=== PATIENT | male | born 1945 | race Caucasian/White ===

== ENCOUNTER 2017-04-21 20:39 | Emergency (ER) | payer MEDICARE, BC ==
--- NOTE | 2017-04-21 20:58 | UC ---
Dizzy HPI HPI Summary: 71 yo male present here about 45 minutes after a brief bout of vertigo (about 5 seconds) states he had had multiple episodes of vertigo in the past this one is different because immediately after it he experience moderate dyspnea this persists here but is currently very mild also has a mild headache no n/v denies CP hx of HTN, DM, dyslipidemia, and hx of smoking - History Of Current Complaint Chief Complaint: UCDizziness Stated Complaint: VERTIGO,SOB Time Seen by Provider: 04/21/17 20:42 Hx Obtained From: Patient Onset/Duration: Sudden Onset, Resolved Timing: Constant Severity Initially: Severe Severity Currently: None Character: Room Spinning Aggravating Factor(s): Nothing Associated Signs And Symptoms: Positive: SOB - since episode - Risk Factors Cardiac Risk Factors: Hypertension, Smoking - ex smoker, Diabetes, Elevated Lipids, Family History CVA Risk Factor: Hypertension, Diabetes, Smoking - ex - Allergies/Home Medications Allergies/Adverse Reactions: Allergies Allergy/AdvReac Type Severity Reaction Status Date / Time Wheat Bran Allergy Rash Verified 04/21/17 20:50 CRAB Allergy Severe Anaphylatic Uncoded 04/21/17 20:50 Shock COLD AIR Allergy Rash Uncoded 04/21/17 20:50 Home Medications: Home Medications Meclizine HCl [Meclizine 25] 25 mg PO DAILY PRN 04/21/17 [History Confirmed 11/29] PMH/Surg Hx/FS Hx/Imm Hx Previously Healthy: Yes Endocrine History: Diabetes, Dyslipidemia Cardiovascular History: Hypertension Other History Of: Negative For: HIV, Hepatitis B, Hepatitis C - Surgical History Surgical History: Yes Surgery Procedure, Year, and Place: PROSTATE SURGERY 2015 - Family History Known Family History: Positive: Cardiac Disease, Hypertension, Diabetes, Other - CVA Negative: Renal Disease - Social History Alcohol Use: Occasionally Alcohol Amount: 1 PER DAY Substance Use Type: None Smoking Status (MU): Former Smoker Amount Used/How Often: 1/2 PACK A DAY Have You Smoked in the Last Year: No When Did the Patient Quit Smoking/Using Tobacco: 1965 Review of Systems Constitutional: Negative Skin: Negative Eyes: Negative ENT: Negative Respiratory: Shortness Of Breath Cardiovascular: Negative Gastrointestinal: Negative Genitourinary: Negative Motor: Negative Neurovascular: Negative Musculoskeletal: Negative Neurological: Negative Psychological: Negative Is Patient Immunocompromised?: No All Other Systems Reviewed And Are Negative: Yes Physical Exam Triage Information Reviewed: Yes Appearance: Well-Appearing, No Pain Distress, Well-Nourished Vital Signs: Initial Vital Signs Temp 97.7 F 04/21/17 20:40 Pulse 79 04/21/17 20:40 Resp 18 04/21/17 20:40 BP 182/83 04/21/17 20:40 Pulse Ox 100 04/21/17 20:40 Vital Signs Reviewed: Yes Eyes: Positive: Conjunctiva Clear, Other: - eomi/perrl ENT: Positive: Hearing grossly normal. Negative: Nasal drainage, Trismus, Muffled voice, Hoarse voice Dental Exam: Normal Neck: Positive: Supple, Nontender, No Lymphadenopathy, Other: - no bruits Respiratory: Positive: Lungs clear, Normal breath sounds, No respiratory distress, No accessory muscle use Cardiovascular: Positive: RRR, No Murmur Abdomen Description: Positive: Nontender Bowel Sounds: Positive: Present Musculoskeletal: Positive: ROM Intact, No Edema Neurological Exam: Normal Neurological: Positive: Alert, Muscle Tone Normal, Other: - CGS 15/15, (-) pronator drift, no facial droop, non focal exam Psychological Exam: Normal Skin Exam: Normal Diagnostics - EKG Cardiac Rate: NL Cardiac Rhythm: Sinus: Normal Ectopy: None ST Segment: Normal Dizzy Course/Dx - Course Course Of Treatment: EKG with q's in II,III,avF. d/w Dr Canseco. to [facility] via EMS - Differential Dx/Diagnosis Provider Diagnoses: dyspnea. vertigo-resolved Discharge - Discharge Plan Condition: Stable Disposition: [facility] Referrals: Han Denson MD [Primary Care Provider] -
[2017-04-21] MEDS ORDERED: Aspirin Low Dose CHEW TAB* 81 MG PO ONE (21:08)
[2017-04-21] MEDS ORDERED: Aspirin Low Dose CHEW TAB* 81 MG ONE (21:23)
[2017-04-21 21:58] VITALS: BP 165/80
== END 2017-04-21 21:51 | disposition short-term general hospital (02) ==
LOC: UCEAST 20:39
DX: R06.00 Dyspnea, unspecified (principal); R42 Dizziness and giddiness; E11.9 Type 2 diabetes mellitus without complications; E78.5 Hyperlipidemia, unspecified; I10 Essential (primary) hypertension; Z87.891 Personal history of nicotine dependence
CPT/HCPCS: 93005; 99213; A9270-GY; G0463

== ENCOUNTER 2017-04-21 22:04 | Emergency (ER) | payer MEDICARE, BC ==
[2017-04-21] MEDS ORDERED: NS 0.9% 1000 ML* 1,000 ML IV ONE (23:23)
[2017-04-21 23:49] LABS: Hematocrit 36 % (42-52); Hemoglobin 12.2 g/dl (14.0-18.0); Mean Corpuscular HGB Conc 34 g/dl (31-36); Mean Corpuscular Hemoglobin 30 pg (27-31); Mean Corpuscular Volume 88 fL (80-94); Mean Platelet Volume 11 um3 (7.4-10.4); Platelet Count 125 10^3/ul (150-450); Red Blood Count 4.07 10^6/ul (4.0-5.4); Red Cell Distribution Width 14 % (10.5-15); White Blood Count 5.7 10^3/ul (3.5-10.8)
[2017-04-21 23:53] LABS: Urine Appearance Clear; Urine Blood 1+ (Negative); Urine Color Straw; Urine Ketones Negative (Negative); Urine Protein Negative (Negative); Urine Specific Gravity 1.011 (1.010-1.030); Urine Urobilinogen Negative (Negative)
[2017-04-21 23:58] LABS: INR 0.85 (0.77-1.02)
[2017-04-22 00:05] LABS: EGFR Non-African American 63.8 (>60)
[2017-04-22 00:30] LABS: ABS Basophils 0.1 10^3/ul (0-0.2); ABS Eosinophils 0 10^3/ul (0-0.6); ABS Lymphocytes 1.5 10^3/ul (1.0-4.8); ABS Monocytes 0.8 10^3/ul (0-0.8); ABS Neutrophils 3.3 10^3/ul (1.5-7.7); ABS Nucleated RBC 0 10^3/ul; Eosinophil % 0.6 % (0-6); Lymphocyte % 25.8 % (25-47); Nucleated Red Blood Cells % 0.1
[2017-04-22] MEDS ORDERED: Amoxicillin/Clavulanate TAB* 875 MG PO ONE (01:44)
--- NOTE | 2017-04-22 01:44 | ED ---
Vincent Choe Natalie, scribed for Edmund Canseco MD on 04/21/17 at 2320 . Dizziness - HPI Summary HPI Summary: The pt is a 71 y/o M presenting to the ED from c/o dizziness at 20:15. The pt was at home moving around when he began to felt dizzy. He almost fell so he sat down and took BP, which was higher than normal so he went to [facility]. The dizziness is described as room spinning, and it lasted for 15-20 seconds. Pt additionally c/o headache (posterior and temporal for 30-45 mintues) , SOB (30-45 minutes), CP, sleep loss, and slight difficulty with speech. Pt denies weakness in legs, runny nose, sore throat, tinnitus, abnormal urination and BM, and blood in stool. The pt had similar episodes in June 2016 where he became dizzy and had a near syncope, and he was diagnosed with vertigo. He has Fhx of TIA and cardiac problems. He has never had cardiac problems, but he has had a stress test after previous vertigo episodes. - History Of Current Complaint Chief Complaint: EDDizziness Stated Complaint: SYNCOPE Time Seen by Provider: 04/21/17 22:48 Hx Obtained From: Patient Onset/Duration: Resolved Timing: Seconds Character: Room Spinning, Dizzy Aggravating Factor(s): Nothing Alleviating Factor(s): Nothing Associated Signs And Symptoms: Positive: Chest Pain, SOB, Other:. Negative: Tinnitus, Blood In Stool - POSITIVE: headache, sleep loss, slight difficulty with speech; NEGATIVE: weakness in legs, runny nose, sore throat, abnormal urination and BM - Allergies/Home Medications Allergies/Adverse Reactions: Allergies Allergy/AdvReac Type Severity Reaction Status Date / Time Wheat Bran Allergy Rash Verified 04/21/17 20:50 CRAB Allergy Severe Anaphylatic Uncoded 04/21/17 20:50 Shock COLD AIR Allergy Rash Uncoded 04/21/17 20:50 PMH/Surg Hx/FS Hx/Imm Hx Previously Healthy: No Endocrine/Hematology History: Reports: Hx Diabetes - TYPE 2, Hx Anemia - MILD Denies: Hx Thyroid Disease Cardiovascular History: Reports: Hx Hypertension - ON MEDS Denies: Hx Congestive Heart Failure, Hx Deep Vein Thrombosis, Hx Myocardial Infarction, Hx Pacemaker/ICD, Other Cardiovascular Problems/Disorders Respiratory History: Denies: Hx Asthma, Hx Chronic Obstructive Pulmonary Disease (COPD), Hx Lung Cancer, Hx Pneumonia, Hx Pulmonary Embolism, Other Respiratory Problems/ Disorders GI History: Denies: Hx Gall Bladder Disease, Hx Gastrointestinal Bleed, Hx Ulcer, Hx Urosepsis, Other GI Disorders History: Denies: Hx Kidney Stones, Hx Renal Disease Musculoskeletal History: Reports: Hx Tendonitis - VERNON SHOULDERS Sensory History: Reports: Hx Contacts or Glasses - READING GLASSES Denies: Hx Hearing Aid Opthamlomology History: Reports: Hx Contacts or Glasses - READING GLASSES Neurological History: Denies: Hx Dementia, Hx Migraine, Hx Seizures, Hx Transient Ischemic Attacks (TIA) Psychiatric History: Denies: Hx Anxiety, Hx Depression, Hx Panic Disorder, Hx Schizophrenia, Hx Bipolar Disorder - Surgical History Surgery Procedure, Year, and Place: PROSTATE SURGERY 2016 Hx Anesthesia Reactions: No Infectious Disease History: No Infectious Disease History: Denies: Hx Clostridium Difficile, Hx Hepatitis, Hx Human Immunodeficiency Virus (HIV), Hx of Known/Suspected MRSA, Hx Shingles, Hx Tuberculosis, Hx Known/ Suspected VRE, Hx Known/Suspected VRSA, History Other Infectious Disease, Traveled Outside the [place] in Last 30 Days - Family History Known Family History: Positive: Cardiac Disease, Hypertension, Diabetes, Other - CVA Negative: Renal Disease - Social History Alcohol Use: Daily Alcohol Amount: 1 glass wine Substance Use Type: Reports: None Smoking Status (MU): Former Smoker Amount Used/How Often: 1/2 PACK A DAY Have You Smoked in the Last Year: No Review of Systems ENT: Other - NEGATIVE: tinnitus, runny nose Positive: Other. Negative: Sore Throat Positive: Chest Pain Positive: Shortness Of Breath Gastrointestinal: Other - normal BM, no blood in stool Genitourinary: Other - normal urination Neurological: Other - dizziness, sleep loss, difficulty with speech Negative: Weakness All Other Systems Reviewed And Are Negative: Yes Physical Exam Triage Information Reviewed: Yes Vital Signs On Initial Exam: Initial Vitals Temp Pulse Resp BP Pulse Ox 97.8 F 71 18 155/75 99 04/21/17 22:07 04/21/17 22:07 04/21/17 22:07 04/21/17 22:07 04/21/17 22:07 Vital Signs Reviewed: Yes Appearance: Positive: Well-Appearing, No Pain Distress Skin: Positive: Warm, Skin Color Reflects Adequate Perfusion, Dry Head/Face: Positive: Normal Head/Face Inspection Eyes: Positive: EOMI, DEMARCO ENT: Positive: Normal ENT inspection Neck: Positive: Supple, Nontender Respiratory/Lung Sounds: Positive: Clear to Auscultation, Breath Sounds Present Cardiovascular: Positive: RRR Abdomen Description: Positive: Nontender, Soft Bowel Sounds: Positive: Present Musculoskeletal: Positive: Normal, Strength/ROM Intact Neurological: Positive: Normal, Sensory/Motor Intact, Alert, Oriented to Person Place, Time Psychiatric: Positive: Affect/Mood Appropriate - Dayana Coma Scale Coma Scale Total: 15 Diagnostics - Vital Signs Vital Signs Temp Pulse Resp BP Pulse Ox 04/21/17 22:27 70 17 100 04/21/17 22:26 147/79 04/21/17 22:07 97.8 F 71 18 155/75 99 - Laboratory Lab Results: Lab Results 04/21/17 04/21/17 04/21/17 Range/Units 23:35 23:35 23:35 WBC (3.5-10.8) 10^3/ul RBC (4.0-5.4) 10^6/ul Hgb (14.0-18.0) g/dl Hct (42-52) % MCV (80-94) fL MCH (27-31) pg MCHC (31-36) g/dl RDW (10.5-15) % Plt Count (150-450) 10^3/ul MPV (7.4-10.4) um3 Neut % (Auto) (38-83) % Lymph % (Auto) (25-47) % Davison % (Auto) (1-9) % Eos % (Auto) (0-6) % Baso % (Auto) (0-2) % Absolute Neuts (auto) (1.5-7.7) 10^3/ul Absolute Lymphs (auto) (1.0-4.8) 10^3/ul Absolute Monos (auto) (0-0.8) 10^3/ul Absolute Eos (auto) (0-0.6) 10^3/ul Absolute Basos (auto) (0-0.2) 10^3/ul Absolute Nucleated RBC 10^3/ul Nucleated RBC % INR (Anticoag Therapy) 0.85 (0.77-1.02) APTT 29.7 (26.0-36.3) seconds Sodium 130 L (133-145) mmol/L Potassium 4.0 (3.5-5.0) mmol/L Chloride 99 L (101-111) mmol/L Carbon Dioxide 24 (22-32) mmol/L Anion Gap 7 (2-11) mmol/L BUN 18 (6-24) mg/dL Creatinine 1.13 (0.67-1.17) mg/dL Est GFR ( Amer) 82.0 (>60) Est GFR (Non-Af Amer) 63.8 (>60) BUN/Creatinine Ratio 15.9 (8-20) Glucose 111 H (70-100) mg/dL Lactic Acid (0.5-2.0) mmol/L Calcium 9.2 (8.6-10.3) mg/dL Magnesium 2.1 (1.9-2.7) mg/dL Total Bilirubin 0.30 (0.2-1.0) mg/dL AST 15 (13-39) U/L ALT 11 (7-52) U/L Alkaline Phosphatase 70 (34-104) U/L Troponin I 0.00 (<0.04) ng/mL C-Reactive Protein 1.71 (< 5.00) mg/L B-Natriuretic Peptide 22 ( - 100) pg/mL Total Protein 7.2 (6.4-8.9) g/dL Albumin 4.2 (3.2-5.2) g/dL Globulin 3.0 (2-4) g/dL Albumin/Globulin Ratio 1.4 (1-3) Lipase 62 (11.0-82.0) U/L TSH 3.90 (0.34-5.60) mcIU/mL Urine Color Urine Appearance Urine pH (5-9) Ur Specific Burley (1.010-1.030) Urine Protein (Negative) Urine Ketones (Negative) Urine Blood (Negative) Urine Nitrate (Negative) Urine Bilirubin (Negative) Urine Urobilinogen (Negative) Ur Leukocyte Esterase (Negative) Urine WBC (Auto) (Absent) Urine RBC (Auto) (Absent) Urine Bacteria (Absent) Urine Glucose (Negative) 04/21/17 04/21/17 04/21/17 Range/Units 23:35 23:35 23:35 WBC 5.7 (3.5-10.8) 10^3/ul RBC 4.07 (4.0-5.4) 10^6/ul Hgb 12.2 L (14.0-18.0) g/dl Hct 36 L (42-52) % MCV 88 (80-94) fL MCH 30 (27-31) pg MCHC 34 (31-36) g/dl RDW 14 (10.5-15) % Plt Count 125 L (150-450) 10^3/ul MPV 11 H (7.4-10.4) um3 Neut % (Auto) 58.7 (38-83) % Lymph % (Auto) 25.8 (25-47) % Davison % (Auto) 13.2 H (1-9) % Eos % (Auto) 0.6 (0-6) % Baso % (Auto) 1.7 (0-2) % Absolute Neuts (auto) 3.3 (1.5-7.7) 10^3/ul Absolute Lymphs (auto) 1.5 (1.0-4.8) 10^3/ul Absolute Monos (auto) 0.8 (0-0.8) 10^3/ul Absolute Eos (auto) 0 (0-0.6) 10^3/ul Absolute Basos (auto) 0.1 (0-0.2) 10^3/ul Absolute Nucleated RBC 0 10^3/ul Nucleated RBC % 0.1 INR (Anticoag Therapy) (0.77-1.02) APTT (26.0-36.3) seconds Sodium (133-145) mmol/L Potassium (3.5-5.0) mmol/L Chloride (101-111) mmol/L Carbon Dioxide (22-32) mmol/L Anion Gap (2-11) mmol/L BUN (6-24) mg/dL Creatinine (0.67-1.17) mg/dL Est GFR ( Amer) (>60) Est GFR (Non-Af Amer) (>60) BUN/Creatinine Ratio (8-20) Glucose (70-100) mg/dL Lactic Acid 1.2 (0.5-2.0) mmol/L Calcium (8.6-10.3) mg/dL Magnesium (1.9-2.7) mg/dL Total Bilirubin (0.2-1.0) mg/dL AST (13-39) U/L ALT (7-52) U/L Alkaline Phosphatase (34-104) U/L Troponin I (<0.04) ng/mL C-Reactive Protein (< 5.00) mg/L B-Natriuretic Peptide ( - 100) pg/mL Total Protein (6.4-8.9) g/dL Albumin (3.2-5.2) g/dL Globulin (2-4) g/dL Albumin/Globulin Ratio (1-3) Lipase (11.0-82.0) U/L TSH (0.34-5.60) mcIU/mL Urine Color Straw Urine Appearance Clear Urine pH 7.0 (5-9) Ur Specific Burley 1.011 (1.010-1.030) Urine Protein Negative (Negative) Urine Ketones Negative (Negative) Urine Blood 1+ H (Negative) Urine Nitrate Negative (Negative) Urine Bilirubin Negative (Negative) Urine Urobilinogen Negative (Negative) Ur Leukocyte Esterase Negative (Negative) Urine WBC (Auto) Absent (Absent) Urine RBC (Auto) Trace(0-2/hpf) (Absent) Urine Bacteria Absent (Absent) Urine Glucose Negative (Negative) Result Diagrams: 04/21/17 23:35 04/21/17 23:35 Lab Statement: Any lab studies that have been ordered have been reviewed, and results considered in the medical decision making process. - CT Brain CT CT Interpretation: No Acute Changes - No acute intracranial pathology. Probable left mastoiditis. ED physician has reviewed this report. CT Interpretation Completed By: Radiologist - EKG 22:12 Cardiac Rate: NL EKG Rhythm: Sinus Rhythm - 69 BPM EKG Interpretation: NmlST. Q waves in anterior leads. No ectopy. Dizzy Course/Dx - Course Course Of Treatment: BP noted and advised to follow up with PCP. Medications noted. Allergies noted. DISCUSSED RESULTS WITH PATIENT. F/U PMD; RETURN IF WORSE. - Diagnoses Provider Diagnoses: Vertigo, Hypertension, Dyspnea, Chest pain, Mastoiditis Discharge - Discharge Plan Condition: Stable Disposition: HOME Patient Education Materials: Vertigo (ED), Hypertension (ED), Mastoiditis (ED) , Dyspnea (ED), Chest Pain (ED) Referrals: Han Denson MD [Primary Care Provider] - Additional Instructions: Your blood pressure was elevated during todays visit; please follow up with your primary care provider within a week for further evaluation. The documentation as recorded by the Vincent perez Natalie accurately reflects the service I personally performed and the decisions made by me, Edmund Canseco MD.
[2017-04-22 01:52] VITALS: BP 145/76
--- NOTE | 2017-04-22 07:45 | RAD ---
INDICATION: Syncope COMPARISON: Chest x-ray dated September 14, 2010 TECHNIQUE: Single AP portable view of the chest was obtained. FINDINGS: Image quality is compromised due to the relative inferiority of a portable chest x-ray. The heart and mediastinum exhibit normal size and contour. The lungs are grossly clear. There is no evidence of a large pleural effusion. Visualized bones are normal for the patient's age. IMPRESSION: No radiographic evidence for acute cardiopulmonary abnormality on this portable chest x-ray.
--- NOTE | 2017-04-22 07:47 | RAD ---
INDICATION: Dizziness and headache COMPARISON: CT of the brain September 30, 2007 TECHNIQUE: Contiguous axial sections of the brain were obtained from the skull base to the vertex without contrast. FINDINGS: The ventricles, cisterns and sulci mild symmetric involutional changes. The miner-white matter differentiation is adequately maintained and there is no sulcal effacement. No significant focal abnormality or mass effect is present. There is no evidence for intracranial hemorrhage. No significant focal osseous abnormality is present. The visualized portion of the paranasal sinuses appear clear. There is partial effusion of the dependent left mastoid air cells. IMPRESSION: 1. No CT evidence of acute intracranial abnormality. 2. Partial left-sided mastoid air cell effusion.
== END 2017-04-22 02:03 | disposition home or self-care (01) ==
LOC: ED 22:04
DX: R42 Dizziness and giddiness (principal); I10 Essential (primary) hypertension; R06.00 Dyspnea, unspecified; H70.90 Unspecified mastoiditis, unspecified ear; R07.9 Chest pain, unspecified; R06.02 Shortness of breath; Z87.891 Personal history of nicotine dependence
CPT/HCPCS: 36415; 70450; 71045; 80053; 81003; 81015; 83605; 83690; 83735; 83880; 84443; 84484; 85025; 85610; 85730; 86140; 93005; 96360; 99282; A9270-GY

== ENCOUNTER 2017-06-26 15:27 | Emergency (ER) | payer MEDICARE, BC ==
[2017-06-26 15:41] VITALS: BP 133/74
--- NOTE | 2017-06-26 16:37 | UC ---
Back Pain HPI - HPI Summary HPI Summary: 71 yo HM here to check a scalp abrasion advised by his children as something fell on his head last night. Denies LOC, dizziness or visual changes also wishes for med refills for vertigo and c/o left LBP and would like refills for Flexeril - History of Current Complaint Chief Complaint: UCBackPain Stated Complaint: HEAD INJURY, BACK PAIN Time Seen by Provider: 06/26/17 15:56 Hx Obtained From: Patient Onset/Duration: Lasting Days Timing: Lasting Days Severity Initially: Moderate Severity Currently: Moderate Pain Intensity: 2 Back Pain: Is Discrete @ - left L3-4 level Character: Aching Aggravating Factor(s): Movement Alleviating Factor(s): Other - flexeril - Allergies/Home Medications Allergies/Adverse Reactions: Allergies Allergy/AdvReac Type Severity Reaction Status Date / Time wheat Allergy Rash Verified 06/26/17 15:43 CRAB Allergy Severe Anaphylatic Uncoded 06/26/17 15:43 Shock COLD AIR Allergy Rash Uncoded 06/26/17 15:43 PMH/Surg Hx/FS Hx/Imm Hx - Additional Past Medical History Additional PMH: vertigo, LBP Previously Healthy: Yes Other History Of: Negative For: HIV, Hepatitis B, Hepatitis C - Surgical History Surgical History: Yes Surgery Procedure, Year, and Place: PROSTATE SURGERY 2015 - Family History Known Family History: Positive: Cardiac Disease, Hypertension, Diabetes, Other - CVA Negative: Renal Disease - Social History Alcohol Use: Daily Alcohol Amount: 1 glass wine Substance Use Type: None Smoking Status (MU): Former Smoker Amount Used/How Often: 1/2 PACK A DAY Have You Smoked in the Last Year: No When Did the Patient Quit Smoking/Using Tobacco: 1965 Review of Systems Constitutional: Negative Skin: Negative Eyes: Negative ENT: Negative Respiratory: Negative Cardiovascular: Negative Gastrointestinal: Negative Genitourinary: Negative Motor: Negative Neurovascular: Other - h/o vertigo- now intermittent Musculoskeletal: Myalgia - Left LBP Neurological: Negative Psychological: Negative All Other Systems Reviewed And Are Negative: Yes Physical Exam Triage Information Reviewed: Yes Vital Signs: Initial Vital Signs Temp 36.6 C 06/26/17 15:38 Pulse 67 06/26/17 15:38 Resp 18 06/26/17 15:38 BP 133/74 06/26/17 15:38 Pulse Ox 100 06/26/17 15:38 Eye Exam: Normal ENT Exam: Normal Dental Exam: Normal Neck exam: Normal Neck: Positive: 1 Respiratory Exam: Normal Cardiovascular Exam: Normal Abdominal Exam: Normal Musculoskeletal: Positive: Other: - left L3-4 paraspinal tenderness Neurological Exam: Normal Psychological Exam: Normal Skin: Positive: Other - healing abrasion on left side of vertex of head Back Pain Course/Dx - Course Course Of Treatment: CT head done- new lytic bony lesion on let temporal bone 6x4mm- NEW per radiologist- advised f/u with PCP to work up for suspected possible metastatic lesion from -a primary of unknown origin. lumbar XR with DJD. refilled med for vertigo and LBP. UA + for blood and elevated pH 0f 7- cipro 500 BID x7 days for UTI- pt states he will f/u appt with urology next week - Differential Dx/Diagnosis Provider Diagnoses: new lytic lesion on left temporal bone. vertigo. LBP. UTI Discharge - Discharge Plan Condition: Stable Disposition: HOME Prescriptions: Ciprofloxacin TAB* [Cipro 500 MG TAB*] 500 mg PO BID 10 Days #20 tab Cyclobenzaprine TAB* [Flexeril 10 MG TAB*] 10 mg PO BID 5 Days #10 tab Meclizine TAB* [Antivert 12.5 TAB*] 12.5 mg PO TID PRN 10 Days #30 tab PRN Reason: Dizziness Patient Education Materials: Urinary Tract Infection in Men (ED), Vertigo (ED) , Lumbar Radiculopathy (ED), Chronic Back Pain (ED) Referrals: Han Denson MD [Primary Care Provider] - Additional Instructions: follow up with your PCP within one week, you will need MRI of lumbar spine if lower back pain continues take medication as directed- take meclizine as needed for vertigo Take flexeril as needed for LBP Take cipro for urinary tract infection
--- NOTE | 2017-06-26 16:59 | RAD ---
Indication: Chronic low back pain. Sharp character today. Comparison: No relevant prior exams available on the [facility] for comparison. Technique: AP and lateral views lumbar sacral spine. Report: Alignment is anatomic. No cortical disruption or trabecular impaction to indicate a vertebral body fracture. 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 Disc space narrowing is most prominent at L4-L5 moderately severe and L5-S1 severe. Facet joint osteoarthritis is most prominent at L4-L5 and L5-S1. Unremarkable paraspinal soft tissue contours. IMPRESSION: Negative for fracture or spondylolisthesis. 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
--- NOTE | 2017-06-26 17:00 | RAD ---
INDICATION: Vertigo. COMPARISON: Comparison is made with a prior CT of the brain from April 22 2017. Correlation is also meniscus with a study from September 30, 2007. TECHNIQUE: Contiguous axial sections of the brain were obtained from the skull base to the vertex without contrast. FINDINGS: The ventricles, cisterns and sulci are enlarged consistent with diffuse atrophy. No significant focal abnormality or mass effect is seen. There is no evidence for hemorrhage. There is a lytic lesion present in the left temporal bone measuring 6 x 4 mm in size which appears to have increased slightly in size from the prior study and is new from the exam from 2007. The visualized portion of the paranasal sinuses appear clear. There is a small effusion within the left mastoid air cells which is unchanged. The results of this exam were discussed with the referring clinician. IMPRESSION: 1. NO EVIDENCE FOR ACUTE INTRACRANIAL ABNORMALITY. 2. LYTIC LESION IN THE LEFT TEMPORAL BONE SLIGHTLY INCREASED IN SIZE CONSIDER METASTATIC FOCUS VERSUS MULTIPLE MYELOMA. 3. LEFT MASTOID AIR CELL EFFUSION, UNCHANGED.
== END 2017-06-26 17:27 | disposition home or self-care (01) ==
LOC: UCEAST 15:27
DX: M89.9 Disorder of bone, unspecified (principal); R42 Dizziness and giddiness; M54.5 Low back pain; N39.0 Urinary tract infection, site not specified; H74.8X2 Other specified disorders of left middle ear and mastoid
CPT/HCPCS: 70450; 72100; 81003; 87086; 99212; G0463

== ENCOUNTER 2017-09-25 07:30 | Inpatient (IN) | payer MEDICARE, BC ==
[2017-09-29] MEDS ORDERED: Buffered Lidocaine 0.9% SYRIN* 5 ML/SYR SYRINGE INTRADERM ONE (10:56)
[2017-09-30] MEDS ORDERED: Famotidine IV* 10 MG/ML 2 ML (20 mg) IV ONE (06:00)
[2017-09-30] MEDS ORDERED: Dexamethasone IV* 4 MG/ML 1 ML (4 MG) IV SLOW PU ONE (06:00)
[2017-09-30] MEDS ORDERED: Gadoteridol* (CONTRAST) 279.3 MG/ML 10 ML IV ONE (09:30)
--- NOTE | 2017-09-30 10:02 | RAD ---
HISTORY: PRE OP PLANNING COMPARISONS: July 16, 2012 TECHNIQUE: The following sequences were obtained of the head: Axial postcontrast enhanced T1-weighted 3-D stable greater than imaging of the head for the purposes of surgical navigation. Again noted is an enhancing lesion of the diploic space of the left temporal skull. This is similar in size and appearance to the July 16, 2012 examination. Elsewhere, there is no abnormal enhancement. IMPRESSION: STABLE ENHANCING LESION OF THE DIPLOIC SPACE OF THE LEFT TEMPORAL SKULL.
[2017-09-30] MEDS ORDERED: ceFAZolin 2 GM PREMIX (*) 2 GM/50 ML BAG IVPB ONE (10:21)
[2017-09-30] MEDS ORDERED: Famotidine IV* 10 MG/ML 2 ML (20 mg) ONE (10:21)
[2017-09-30] MEDS ORDERED: Dexamethasone IV* 4 MG/ML 1 ML (4 MG) ONE (10:21)
[2017-09-30] MEDS ORDERED: Buffered Lidocaine 0.9% SYRIN* 5 ML/SYR SYRINGE ONE (10:21)
[2017-09-30] MEDS ORDERED: Atracurium* 10 MG/ML 10 ML VIAL ONE (12:57)
[2017-09-30] MEDS ORDERED: fentaNYL* 50 MCG/ML 5 ML VIAL (250 MCG VIAL) ONE (12:57)
[2017-09-30] MEDS ORDERED: Midazolam* 1 MG/ML 5 ML VIAL (5 MG) ONE (12:57)
[2017-09-30] MEDS ORDERED: Propofol* 10 MG/ML 20 ML BTL IV PUSH ONE (12:58)
[2017-09-30] MEDS ORDERED: Lidocaine 2% PF * 5 ML VIAL ONE (12:58)
[2017-09-30] MEDS ORDERED: Lidocaine 1% MPF wEPI 200,000* 30 ML SDV ONE (13:42)
[2017-09-30] MEDS ORDERED: Thrombin 5,000 UNITS* 1 APPLIC KIT - topical use - TOPICAL ONE (13:42)
[2017-09-30] MEDS ORDERED: Bacitracin IV* 50,000 UNITS INJ ONE (13:42)
[2017-09-30] MEDS ORDERED: HYDROmorphone INJ* 1 MG/ML CARPUJECT SYRINGE IV PRN (14:38)
[2017-09-30] MEDS ORDERED: Ondansetron INJ* 2 MG/ML VIAL IV PRN (14:38)
[2017-09-30] MEDS ORDERED: fentaNYL* 50 MCG/ML 2 ML VIAL (100 MCG VIAL) IV PRN (14:38)
[2017-09-30] MEDS ORDERED: DiMENhydriNATE IV* 50 MG/ML VIAL IV PUSH PRN (14:38)
[2017-09-30] MEDS ORDERED: Naloxone* 0.4 MG/ML 1 ML VIAL IV PRN (14:38)
[2017-09-30] MEDS ORDERED: Acetaminophen TAB* 325 MG PO PRN (16:56)
[2017-09-30] MEDS: levETIRAcetam 500 MG IVPREMIX* 500 MG/100 ML BAG IV SCH (18:02)
[2017-09-30] MEDS ORDERED: Losartan TAB* 25 MG ONE (20:09)
[2017-09-30] MEDS: Atorvastatin* 10 MG TAB PO SCH (20:34)
[2017-09-30] MEDS: Losartan TAB* 25 MG PO SCH (22:41)
[2017-09-30] MEDS: HYDROcodone/ACETAMIN 5-325 MG* 1 TAB PO PRN (23:21)
[2017-10-01] MEDS ORDERED: hydrALAZINE IV* 20 MG/ML VIAL IV SLOW PU ONE (01:09)
[2017-10-01] MEDS ORDERED: hydrALAZINE IV* 20 MG/ML VIAL ONE (01:13)
[2017-10-01] MEDS: levETIRAcetam 500 MG IVPREMIX* 500 MG/100 ML BAG IV SCH ×2 (05:30→18:02)
[2017-10-01] MEDS: HYDROcodone/ACETAMIN 5-325 MG* 1 TAB PO PRN ×3 (05:30→20:23)
[2017-10-01 05:41] LABS: Hematocrit 36 % (42-52); Hemoglobin 12.5 g/dl (14.0-18.0); Mean Corpuscular HGB Conc 35 g/dl (31-36); Mean Corpuscular Hemoglobin 31 pg (27-31); Mean Corpuscular Volume 87 fL (80-94); Mean Platelet Volume 11.1 um3 (7.4-10.4); Platelet Count 114 10^3/ul (150-450); Red Blood Count 4.07 10^6/ul (4.00-5.40); Red Cell Distribution Width 15 % (10.5-15)
[2017-10-01] MEDS ORDERED: chlorproMAZINE TAB* 25 MG PO ONE (08:25)
--- NOTE | 2017-10-01 09:35 | RAD ---
INDICATION: Postoperative left calvarial lesion COMPARISON: CT brain June 26, 2017 TECHNIQUE: Noncontrast axial source images were acquired from the skull base to the vertex. Examination is mildly limited due to motion artifact. Images were repeated. FINDINGS: Ventricles/sulci: The ventricles and cisterns are normal in size and configuration for age. Brain parenchyma: There is no focal parenchymal finding, evidence of intracranial mass, or intracranial mass effect. Intracranial hemorrhage:None. Extra-axial spaces: There are no abnormal extra axial fluid collections or evidence of extra-axial mass. Calvarium: There is now a defect in the left temporal lobe consistent with interval craniotomy. There is a plate and there are adjacent skin sutures.. Scalp: There is no evidence of scalp or extracalvarial soft tissue abnormality. Paranasal sinuses/mastoid: The paranasal sinuses and mastoid air cells are clear. Other: None. IMPRESSION: NO ACUTE INTRACRANIAL. INTERVAL LEFT CRANIOTOMY.
[2017-10-01] MEDS: Losartan TAB* 25 MG PO SCH (20:22)
[2017-10-01] MEDS: Atorvastatin* 10 MG TAB PO SCH (20:23)
[2017-10-01] MEDS ORDERED: Magnesium Hydroxide LIQ* 30 ML UDC PO PRN (20:52)
--- NOTE | 2017-10-01 23:59 | PN ---
Progress Note - Progress Note Date of Service: 10/01/17 SOAP: Subjective: [] Patient was seen earlier in am in ICU and on floor in pm. No events ON. Tolerates PO well, Ambulates , Voids. Objective: []VSS, Afebrile. Wound s,c,d AAOx3, DEMARCO, CN II-XII grossly intact, Motor 5/5 all extremities. No drift Sensory grossly intact to light touch Assessment: []71 yom POD#1 left temporal bone excisional biopsy Plan: [] Monotor VS, Neurochecks CT revealed good resection of lesion. No hematoma Dc IVF OOB DC planning. Julio Cesar Gonzalez MD
--- NOTE | 2017-10-02 03:34 | OP ---
DATE OF OPERATION: 09/30/17 - ROOM #339 DATE OF : 43 SURGEON: Bautista Gonzalez MD Co-Surgeon: Tanner Denton MD ANESTHESIA: General. PRE-OP DIAGNOSIS: Left temporal bone lesion. POST-OP DIAGNOSIS: Left temporal bone lesion. OPERATIVE PROCEDURE: The patient underwent left temporal mini craniotomy for excisional biopsy of temporal bone lesion under stereotactic navigation. ESTIMATED BLOOD LOSS: 30 cc. COMPLICATIONS: None. SUMMARY: The patient is a very pleasant 71-year-old gentleman, who presented with complaints of vertigo. The patient in the diagnostic workup had CT scan and MRI with findings consistent with an enlarging left temporal bone lesion. After explaining treatment options and possible outcomes and also explained expectations, limitations, possible complications of the procedure with complications including not limited to bleeding, infection, risk of injury to adjacent structures, coma, paralysis, , need for additional procedure, anesthesia risk, stroke, blindness, cancer, inability to remove the whole lesion, recurrence of the lesion, need for additional procedures, spinal fluid leak, need for cranioplasty in the future, anesthesia risk, the patient was agreeable to proceed with surgical intervention in the form of left temporal craniotomy/craniectomy for excisional biopsy of temporal bone lesion under stereotactic navigation and informed consent was obtained. The patient understood that his condition may not improve, in fact, may get worse after the surgery and that he may need to have additional procedures in the future. He also understood that the operative plan may be modified according to intraoperative findings and conditions. DESCRIPTION OF PROCEDURE: The patient was brought to the operating room, was placed under anesthesia by the anesthesia team. He was carefully positioned lateral with the assistance of johns bag and axillary roll and all the bony prominences were meticulously padded. His head was fixated in a three-point Hay fixation system and the patient's head was registered with navigation platform with use of preoperatively obtained MRI. Location of the left temporal bone lesion was marked on the skin and a small curvilinear incision was marked in the skin. Skin was prepped and draped in a standard fashion and after appropriate surgical pause and patient identification, the skin incision site was infiltrated with local anesthetic. A #10 surgical blade was used to incise the skin and Bovie cautery was used to advance the incision into the periosteum. Temporalis muscle was then divided with the Bovie cautery and retracted laterally in each side with periosteal elevators and self-retaining retractors were introduced in the field and again, under stereotactic navigation the margins of the bone lesion were marked on the skin. Discoloration of bone at the lesion site was also identified confirming the correct identification of the lesion with the navigation system. Katja holes were placed on the lower and superior part of the incision site with high speed drill and craniotome was used to fashion a mini craniotomy in the margins of normal bone surrounding the temporal bone lesion. The bone flap was gently elevated with penfield number 3 and periosteal elevator and the bone lesion infiltrating both sides of bone flap, was identified as expected from preoperative imaging. The lesion was found to be rather soft in consistency and was incorporated in the elevated bone flap. There was suspicion of extension towards the lower part of the craniotomy site and the craniotomy was enlarged to resect that area with use of Kerrison punches The area of craniotomy was found to include all lesion in the navigation system. Specimen was sent for pathology evaluation and after copious irrigation with meticulous hemostasis, the dura was found to have a small defect with visually normal brain underlying it, without obvious extension of the tumor intradurally. A small piece of DuraGen was used to cover the dura and the craniotomy defect was covered with titanium mesh and secured with titanium screws. After copious irrigation and confirmation of meticulous hemostasis, the self- retaining retractors were removed and the wound was closed by layers with 0 undyed Vicryl sutures to approximate the temporalis muscle and fascia while the subcutaneous tissue and galea were approximated with interrupted 2-0 Vicryl sutures. The skin was then approximated with kell and covered with sterile sponges and dressing. At the end of the procedure, all counts were reported to be correct. The patient remained hemodynamically stable throughout the case. The three-point Hay fixation system was gently removed and the patient was turned supine, was extubated and was transferred to recovery in excellent condition, neurologically intact. The case was done with two attending physicians because of the complexity of the case. [id number]/[facility] #: [id number] BANDAR
[2017-10-02] MEDS: levETIRAcetam 500 MG IVPREMIX* 500 MG/100 ML BAG IV SCH ×2 (05:07→18:04)
[2017-10-02] MEDS: HYDROcodone/ACETAMIN 5-325 MG* 1 TAB PO PRN ×3 (05:07→19:55)
[2017-10-02] MEDS ORDERED: Magnesium Hydroxide LIQ* 30 ML UDC PO PRN (19:06)
[2017-10-02] MEDS: Losartan TAB* 25 MG PO SCH (19:55)
[2017-10-02] MEDS: Atorvastatin* 10 MG TAB PO SCH (19:56)
[2017-10-03] MEDS: levETIRAcetam 500 MG IVPREMIX* 500 MG/100 ML BAG IV SCH (05:37)
[2017-10-03] MEDS: HYDROcodone/ACETAMIN 5-325 MG* 1 TAB PO PRN ×2 (09:51→14:31)
[2017-10-03 12:17] VITALS: BP 121/60
--- NOTE | 2017-10-03 23:58 | PN ---
Progress Note - Progress Note Date of Service: 10/03/17 SOAP: Subjective: []Patient was seen earlier. No events ON. Tolerates PO well, Ambulates , Voids. Wants to go home. Objective: []VSS, Afebrile. Wound s,c,d AAOx3, DEMARCO, CN II-XII grossly intact, Motor 5/5 all extremities. No drift Sensory grossly intact to light touch Assessment: []71 yom POD#2 left temporal bone excisional biopsy Plan: Pathology report: Fibrous dysplasia. DC planning today. Full instructions were given. Julio Cesar Gonzalez MD
--- NOTE | 2017-10-05 21:35 | DS ---
DISCHARGE SUMMARY: DATE OF ADMISSION: 09/30/17 DATE OF DISCHARGE: 10/03/17 PROCEDURE: The patient underwent a left temporal bone craniotomy for excisional biopsy of temporal bone lesion. SUMMARY: The patient is a very pleasant 71-year-old gentleman, who presented with complaints of vertigo for medical attention. During his diagnostic workup as outpatient, he had CT scan and MRI findings consistent with an enlarging left temporal bone lesion after initial diagnostic workup. The patient was offered the option of surgical intervention. After explaining expectations, limitations, complications of the procedure, the patient was agreeable to proceed with surgery and underwent a left temporal mini-craniotomy for excisional biopsy of the left temporal bone lesion. The patient tolerated the procedure well, was transferred to the ICU where he recovered well. The patient was transferred to the floor. Postoperative CT confirmed the resection of the lesion while pathology examination revealed fibrous dysplasia. On 10/03/17, the patient was doing very well. His wound was dry and clean. He was tolerating p.o. well, ambulating, voiding, had good pain control, and was considered to be ready to be discharged home. The patient was sent home with instructions and p.o. pain medications. Full instructions given to the patient. [id number]/[facility] #: [id number] MTDD
== END 2017-10-03 16:50 | disposition home or self-care (01) | DRG 517 ==
LOC: AA 09-30 08:37 → ICU 09-30 16:48 → SSU 10-01 13:46
PROVIDERS: ADMIT Neurological Surgery; ATTEND Neurological Surgery
PROC: 0NB60ZZ Excision of Left Temporal Bone, Open Approach (ICD-10-PCS; principal; 2017-10-03)
PROC: 8E09XBZ Computer Assisted Procedure of Head and Neck Region (ICD-10-PCS; 2017-10-03)
DX: M85.08 Fibrous dysplasia (monostotic), other site (principal); I10 Essential (primary) hypertension; E11.9 Type 2 diabetes mellitus without complications; N40.0 Benign prostatic hyperplasia without lower urinary tract symptoms; Z91.013 Allergy to seafood; Z91.018 Allergy to other foods
CPT/HCPCS: 36415; 70450; 70552; 80048; 85027; 87641; 88305; 88311; 88331; 99211; A9270-GY; A9579; C1713; C1776; G0463; J0360; J0690; J1100; J2001; J2250; J2704; J3010

== ENCOUNTER 2017-09-29 21:16 | Emergency (ER) | payer MEDICARE, BC ==
--- NOTE | 2017-09-29 21:26 | UC ---
Dental HPI - HPI Summary HPI Summary: 71 y/o male presents to the urgent care c/o a dental loose wire front his lower front teeth since this morning. Pt reports he has a dental wire retainer in the back of his frontal lower teeth for many years. Suddenly par of it came off. He was trying tot cut it, but was not successful. He has a Brain biopsy surgery tomorrow. He called the hospital and he was told to come here at the clinic to have it remove. Pt denies dental pain. AVINA, SOB, chest pain, abdominal pain, N/v/ D - History of Current Complaint Stated Complaint: DENTAL COMPLAINT Time Seen by Provider: 09/29/17 21:25 Hx Obtained From: Patient Onset/Duration: Gradual Onset, Lasting Hours - 12 hrs, Still Present Pain Intensity: 0 Pain Scale Used: 0-10 Numeric Aggravating Factor(s): Chewing Alleviating Factor(s): Nothing - Allergies/Home Medications Allergies/Adverse Reactions: Allergies Allergy/AdvReac Type Severity Reaction Status Date / Time wheat Allergy Intermediate Rash Verified 09/29/17 21:36 CRAB Allergy Severe Anaphylatic Uncoded 09/29/17 21:36 Shock COLD AIR AdvReac Intermediate Rash Uncoded 09/29/17 21:36 PMH/Surg Hx/FS Hx/Imm Hx Previously Healthy: Yes Endocrine History: Diabetes, Dyslipidemia Cardiovascular History: Hypertension Other History Of: Negative For: HIV, Hepatitis B, Hepatitis C - Surgical History Surgical History: Yes Surgery Procedure, Year, and Place: PROSTATE SURGERY 2015 - Family History Known Family History: Positive: Cardiac Disease, Hypertension, Diabetes Negative: Renal Disease Family History: CVA - Social History Occupation: Retired Lives: With Family Alcohol Use: Daily Alcohol Amount: 1 glass wine Substance Use Type: None Smoking Status (MU): Former Smoker Amount Used/How Often: 1/2 PACK A DAY Have You Smoked in the Last Year: No When Did the Patient Quit Smoking/Using Tobacco: 1965 Review of Systems Constitutional: Negative Skin: Negative Eyes: Negative ENT: Dental Pain - dental wire loose and cutting his tongue Respiratory: Negative Cardiovascular: Negative Gastrointestinal: Negative Genitourinary: Negative Motor: Negative Neurovascular: Negative Musculoskeletal: Negative Neurological: Negative Psychological: Negative Is Patient Immunocompromised?: No All Other Systems Reviewed And Are Negative: Yes Physical Exam - Summary Physical Exam Summary: Vital Signs Reviewed: Yes General: well developed. well nourished male sitting in the examining table w/o any apparent distress Eyes: Positive: Conjunctiva Clear - PERRLA, EOMI, fundi grossly normal ENT: Positive: Normal ENT inspection, Hearing grossly normal, Pharyngeal erythema, TMs normal, Uvula midline. Negative: Tonsillar swelling, Tonsillar exudate, Trismus Dental: Positive: posterior side on the lower jaw frontal incisors w/ a dental wire. the Rt side en is loose. Neck: Positive: Supple, Nontender Respiratory: Positive: Chest non-tender, Lungs clear, Normal breath sounds, No respiratory distress Cardiovascular: Positive: RRR, No Murmur, Pulses Normal, Brisk Capillary Refill Abdomen Description: Positive: Nontender, No Organomegaly, Soft. Negative: CVA Tenderness (R), CVA Tenderness (L) Bowel Sounds: Positive: Present Musculoskeletal: Positive: Strength Intact, ROM Intact, No Edema Neurological Exam: Normal Psychological Exam: Normal Skin Exam: Normal Triage Information Reviewed: Yes Dental Complaint Course/Dx - Course Course Of Treatment: 71 y/o male presents to the urgent care c/o a dental loose wire front his lower front teeth since this morning. Pt reports he has a dental wire retainer in the back of his frontal lower teeth for many years. Suddenly par of it came off. He was trying tot cut it, but was not successful. He has a Brain biopsy surgery tomorrow. He called the hospital and he was told to come here at the clinic to have it remove. Pt denies dental pain. AVINA, SOB, chest pain , abdominal pain, N/v/D. Hx obtained. Pt w/ the RT side of of the dental wire retainer loose located in the posterior lower incisors. Dental wire removed w/ a wire technician. I was helped by Dr Rodriguez. Pt tolerated w/ procedure and felt better. pt advised to f/u w/ his Dentist for further management and to take Tylenol Po if he developes any dental pain. pt understood and agreed w/ plan of care. - Differential Dx/Diagnosis Differential Diagnosis/Dx: Dental Abscess, Dental Caries, Gingivitis, Mandibular Trauma, Pharyngitis, Tonsillitis Provider Diagnoses: 1- Dental foreign body removed Discharge - Sign-Out/Discharge Documenting (check all that apply): Discharge/Admit/Transfer - D/c home - Discharge Plan Condition: Stable Disposition: HOME Referrals: Han Denson MD [Primary Care Provider] - 2 Days Additional Instructions: 1- foreign body was removed from your frontal teeth. However you still need to f /u with your dentist for further management. 2- Take Tylenol PO as instructed after meals if you develop pain or swelling. - Billing Disposition and Condition Condition: STABLE Disposition: Home
[2017-09-29 21:35] VITALS: BP 112/58
== END 2017-09-29 22:03 | disposition home or self-care (01) ==
LOC: UCEAST 21:16
DX: Z46.4 Encounter for fitting and adjustment of orthodontic device (principal); E11.9 Type 2 diabetes mellitus without complications; Z79.84 Long term (current) use of oral hypoglycemic drugs; E78.5 Hyperlipidemia, unspecified; I10 Essential (primary) hypertension; Z87.891 Personal history of nicotine dependence; Z82.49 Family history of ischemic heart disease and other diseases of the circulatory system; Z83.3 Family history of diabetes mellitus
CPT/HCPCS: 99211; G0463

== ENCOUNTER 2017-11-26 18:20 | Emergency (ER) | payer MEDICARE, BC ==
[2017-11-26 18:31] VITALS: BP 125/66
--- NOTE | 2017-11-26 18:45 | UC ---
Upper Extremity HPI - HPI Summary HPI Summary: The patient is a 72 y/o M presenting to [facility] c/o potential shock of approximately 110 volts to his right arm from cellphone at 14:30 today. His phone was plugged in charging when he went to pick it up and felt an immediate and painful sting from his right hand up through his forearm with a burning sensation. He thought that it may have been a bee sting, but there is no evidence of that. There is no exterior burn present, and there is no associated elbow pain or chest pain. He states there was a numbness and tingling in his hand at onset that has since subsided. Currently he rates the pain 5/10 in severity. He has been using ice for the last three hours, but the pain has not decreased since onset. Hx of diabetes. The pain is aggravated by flexion of the right hand and arm. Former smoker. - History of Current Complaint Chief Complaint: UCUpperExtremity Stated Complaint: ELECTRICAL SHOCK ON HAND Time Seen by Provider: 11/26/17 18:37 Hx Obtained From: Patient Onset/Duration: Sudden Onset, Lasting Hours, Still Present Severity Initially: Moderate Severity Currently: Moderate Pain Intensity: 5 Pain Scale Used: 0-10 Numeric Location Of Pain: Is Discrete @ - right wrist, Radiates To - right hand and forearm Character: Burning Aggravating Factor(s): Flexion Alleviating Factor(s): Nothing Associated Signs And Symptoms: Positive: Numbness/Tingling - in right hand, Other - NEGATIVE: chest pain, elbow pain, exterior burn Body - Head: 1 - pain throughout right wrist, hand, and forearm with burning sensation - Allergies/Home Medications Allergies/Adverse Reactions: Allergies Allergy/AdvReac Type Severity Reaction Status Date / Time wheat Allergy Intermediate Rash Verified 11/26/17 18:32 CRAB Allergy Severe Anaphylatic Uncoded 09/30/17 10:05 Shock ENVIRONMENTAL Allergy See Comment Uncoded 09/30/17 10:05 COLD AIR AdvReac Intermediate Rash Uncoded 09/30/17 10:05 PMH/Surg Hx/FS Hx/Imm Hx Endocrine History: Diabetes Other Respiratory History: NEGATIVE: COPD Other History Of: Negative For: HIV, Hepatitis B, Hepatitis C - Surgical History Surgical History: Yes Surgery Procedure, Year, and Place: PROSTATE SURGERY 2016 - Family History Known Family History: Positive: Cardiac Disease, Hypertension, Diabetes, Other - CVA Negative: Renal Disease Family History: CVA - Social History Alcohol Use: Rare Alcohol Amount: glass of wine Substance Use Type: None Smoking Status (MU): Former Smoker Amount Used/How Often: 1/2 PACK A DAY Have You Smoked in the Last Year: No When Did the Patient Quit Smoking/Using Tobacco: 1965 - Immunization History Most Recent Influenza Vaccination: 2017 Most Recent Pneumonia Vaccination: 2017 Review of Systems Skin: Other - POSITIVE: burning sensation from right hand throughout forearm; NEGATIVE: burn to exterior of skin Cardiovascular: Other - NEGATIVE: chest pain Musculoskeletal: Other: - POSITIVE: shock to right wrist; NEGATIVE: pain in elbow Neurological: Numbness - and tingling in right hand All Other Systems Reviewed And Are Negative: Yes Physical Exam - Summary Physical Exam Summary: General: well-appearing, no pain distress Skin: warm, color reflects adequate perfusion, dry Head: normal Eyes: EOMI, DEMARCO ENT: normal Neck: supple, nontender Respiratory: CTA, breath sounds present Cardiovascular: RRR Abdomen: soft, nontender Bowel: present Musculoskeletal: strength/ROM intact, mild tenderness to palpation in the right thenar aspect of hand Neurological: sensory/motor intact, A&O x3 Psychological: affect/mood appropriate Triage Information Reviewed: Yes Vital Signs: Initial Vital Signs Temp 98.7 F 11/26/17 18:26 Pulse 68 11/26/17 18:26 Resp 16 11/26/17 18:26 BP 125/66 11/26/17 18:26 Pulse Ox 98 11/26/17 18:26 Vital Signs Reviewed: Yes Diagnostics - Radiology Right Hand XR Xray Interpretation: No Acute Changes - Negative examination. [facility] physician has reviewed this report. Radiology Interpretation Completed By: Radiologist Upper Extremity Course/Dx - Course Course Of Treatment: Medications reviewed. Allergies noted. THE SHOCK PAIN RADIATED TO THE RIGHT ELBOW. DENIES CHEST PAIN OR FEELING LIGHTHEADED. PAIN IMPROVED IN THE HAND. NO BURN SEEN ON THE SKIN. UPTODATE ELECTRICAL BURN HANDOUT GIVEN TO THE PATIENT. F/U WITH HANDS IF NOT IMPROVED. - Differential Dx/Diagnosis Provider Diagnoses: RIGHT HAND ELECTRICAL SHOCK Discharge - Sign-Out/Discharge Documenting (check all that apply): Patient Departure - Patient will be discharged home. - Discharge Plan Condition: Stable Disposition: HOME Patient Education Materials: [employer] Adults (ED) Referrals: Han Denson MD [Primary Care Provider] - Loki Godoy MD [Medical Doctor] - Linda Tavarez MD [Medical Doctor] - Additional Instructions: FOLLOW UP WITH YOUR PRIMARY CARE DOCTOR. IF NOT IMPROVED, FOLLOW UP WITH THE ORTHOPEDIC HAND SPECIALIST, DR TAVAREZ OR DR GODOY. TAKE IBUPROFEN 600MG EVERY 6 HOURS NEEDED FOR PAIN. GET RECHECKED FOR ANY WORSENING OF YOUR CONDITION OR QUESTIONS OR CONCERNS. - Billing Disposition and Condition Condition: STABLE Disposition: Home Attestation Statement Scribe Attestation: This is ana Kaur documenting for attending Dr. Edmund Canseco MD. User Type: Provider with Scribe Provider Attestation: The documentation recorded by the scribe accurately reflects the service I personally performed and the decisions made by me.
[2017-11-26] MEDS ORDERED: Ibuprofen TAB* 600 MG PO ONE (18:48)
--- NOTE | 2017-11-26 19:05 | RAD ---
INDICATION: Right hand injury COMPARISON: None TECHNIQUE: AP, lateral, and oblique views were obtained. FINDINGS: The bony structures, joint spaces, and soft tissues are normal for age. IMPRESSION: NEGATIVE EXAMINATION.
== END 2017-11-26 19:25 | disposition home or self-care (01) ==
LOC: UCEAST 18:20
DX: T75.4XXA Electrocution, initial encounter (principal); W86.8XXA Exposure to other electric current, initial encounter; Y93.89 Activity, other specified; Y92.9 Unspecified place or not applicable; Z87.891 Personal history of nicotine dependence
CPT/HCPCS: 99212; A9270-GY; G0463